=== PATIENT | female | born 2000 | race Caucasian/White ===

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

== ENCOUNTER → 2024-04-27 | Outpatient (CLI) | payer MEDICAID, SELFPAY ==
[2024-04-27 16:31] LABS: Protein, Urine (Random) 11.5 mg/dL (<11.9); Protein:Creat Ratio 148 mg/g CRE (0-200)
[2024-05-01 00:07] LABS: Chlamydia By Nucleic Acid AMP Negative (Negative); Gonococcus By Nucleic Acid AMP Negative (Negative)
[2024-05-03 15:41] LABS: HPV Reflexed? NOT INDICATED
== END | disposition home or self-care (01) ==
PROVIDERS: Referring Provider Advanced Practice Midwife; Visit Provider Obstetrics & Gynecology
DX: O09.90 Supervision of high risk pregnancy, unspecified, unspecified trimester (principal); Z3A.00 Weeks of gestation of pregnancy not specified; Z87.59 Personal history of other complications of pregnancy, childbirth and the puerperium; Z12.4 Encounter for screening for malignant neoplasm of cervix
CPT/HCPCS: 82570; 84156; 87086; 87088; 87491; 87591; 88175; G0145

== ENCOUNTER → 2024-05-18 | Outpatient (CLI) | payer MEDICAID, SELFPAY ==
[2024-05-18 15:37] LABS: Absolute Lymphocyte Count 2.04 X10^3/uL (0.83-4.51); Absolute Neutrophil Count 6.8 X10^3/uL (2.0-7.7); Basophil# 0.08 X10^3/uL; Basophil% 0.8 % (0-1); Eosinophil# 0.09 X10^3/uL; Eosinophils% 0.9 % (0-5); Hematocrit 39.5 % (37-47); Hemoglobin 13.5 g/dL (12.0-15.0); Lymphocyte # 2.04 X10^3/ul (0.83-4.51); Lymphocyte % 21.4 % (19-41); Mean Corp Hgb Conc 34.2 g/dL (32-36); Mean Platelet Vol. 9.8 fl (6.2-12.0); Monocyte# 0.49 X10^3/uL; Monocyte% 5.1 % (0-10); NRBC Flagged by Analyzer 0 % (0-5); Neutrophil % 71.3 % (47-70); Platelet Count 264 K/mm3 (150-450); RBC Distribution Width CV 12.7 % (11.6-14.6); RBC Distribution Width SD 38.1 fl (35.1-43.9); Red Blood Count 4.82 M/mm3 (4.2-5.4); White Blood Count 9.6 K/mm3 (4.4-11.0)
[2024-05-18 15:58] LABS: ALB/GLOB Ratio 0.9 RATIO (0.9-2.4); AST(SGOT) 5 U/L (15-37); Alanine Aminotransfer ALT/SGPT 18 U/L (13-56); Albumin, Serum 3.6 g/dL (3.2-5.0); Alkaline Phosphatase 66 U/L (45-117); Anion Gap 5 (5-15); BUN 12 mg/dL (7-18); BUN/Creat Ratio 15.2 RATIO (10-20); Calcium,Total 9.1 mg/dL (8.5-10.1); Chloride 107 mmol/L (98-107); Creatinine, Serum 0.79 mg/dL (0.55-1.02); EST Glomerular Filtration Rate 97 mL/min (>60); Est Glom Filt Rate - Afr Amer 117 mL/min (>60); Glucose 82 mg/dL (74-106); Potassium 3.5 mmol/L (3.5-5.1); Protein, Total 7.6 g/dL (6.4-8.2); Sodium Level 136 mmol/L (136-145)
[2024-05-18 18:11] LABS: HIV - WCH Non-Reactive (Nonreactive); Hepatitis B Surface Antigen Non-Reactive (Nonreactive); Hepatitis C Antibody Non-Reactive (Nonreactive); Rubella IgG Reactive (Nonreactive); Syphilis Antibodies Non-reactive
== END | disposition home or self-care (01) ==
LOC: BWCLAB 14:53
PROVIDERS: Obstetrics & Gynecology; Referring Provider Advanced Practice Midwife; Visit Provider Advanced Practice Midwife
DX: O09.91 Supervision of high risk pregnancy, unspecified, first trimester (principal); Z3A.00 Weeks of gestation of pregnancy not specified; Z87.59 Personal history of other complications of pregnancy, childbirth and the puerperium
CPT/HCPCS: 36415; 80053; 85025; 86703; 86762; 86780; 86803; 86850; 86900; 86901; 87340

== ENCOUNTER → 2024-07-26 | Outpatient (CLI) | payer MEDICAID, SELFPAY ==
--- NOTE | 2024-07-26 15:26 | US_ITS ---
STUDY: SECOND AND THIRD TRIMESTER OBSTETRICAL ULTRASOUND REASON FOR EXAM: Female, 23 years old anatomy LMP: March 08, 2024. TECHNIQUE: Transabdominal and Transvaginal TECHNICAL QUALITY: Adequate. PRIOR ULTRASOUND: None. FINDINGS: There is a single intrauterine fetus. The fetus is in a breech presentation. There is demonstrated cardiac activity with a heart rate of 147 bpm. There is a normal amniotic fluid volume. The largest amniotic fluid pocket measures 3.6 cm. The amniotic fluid index (COOPER) is within normal limits. The placenta is fundal in location. There are Grade 0 placental changes. The cervix measures 5 cm in length. The adnexal regions are not visualized. BIOMETRY: BPD: 4.45 cm: 19 weeks, 3 days: 27% HC: 17.23 cm: 19 weeks, 6 days: 33% AC: 15.57 cm: 20 weeks, 5 days: 69% FL: 3.2 cm: 20 weeks, 0 days: 41% CI: 73% FL/BPD: 72% FL/HC: 19% FL/AC: 21% HC/AC: 1.11 age by current US: 19 weeks, 6 days. EDILIA by current US: December 14, 2024. Estimated weight: 345 grams, +/- 52 grams, 62 %. Age by LMP: 20 weeks, 0 days. EDILIA by LMP: December 13, 2024. ANATOMY: Gender: Female Cranium: Normal lateral ventricles. Normal choroid plexus. Normal cerebellum. Normal cisterna magna. Normal face, nose and lips. Chest: Normal 4-chamber heart. Abdomen/Pelvis: Normal diaphragm. Normal stomach. Normal abdominal wall. Normal cord insertion. Normal 3 vessel cord. Normal kidneys. Normal bladder. Spine: Normal cervical spine. Normal thoracic spine. Normal lumbar spine. Normal sacrum. Extremities: Normal bilateral upper extremities. Normal bilateral lower extremities. IMPRESSION: Single live uterine gestation with a mean gestational age of 19 weeks and 6 days. Electronically Signed: Regis Schofield MD at 9:51 EST , STUDY: FIRST TRIMESTER OBSTETRICAL ULTRASOUND REASON FOR EXAM: Female, 23 years old. Cervical length. LMP: March 08, 2024. TECHNIQUE: Transvaginal TECHNICAL QUALITY: Adequate. PRIOR ULTRASOUND: None. FINDINGS: Cervical length measures 5 cm. US/OB Anatomy w/ Transvaginal IMPRESSION: Cervical length measures 5 cm. Electronically Signed: Regis Schofield MD at 9:52 EST ,
== END | disposition home or self-care (01) ==
LOC: US 15:23
PROVIDERS: Referring Provider Obstetrics & Gynecology; Visit Provider Obstetrics & Gynecology
DX: O09.90 Supervision of high risk pregnancy, unspecified, unspecified trimester (principal); Z3A.00 Weeks of gestation of pregnancy not specified

== ENCOUNTER → 2024-09-13 | Outpatient (CLI) | payer MEDICAID, SELFPAY ==
[2024-09-13 12:09] LABS: Absolute Lymphocyte Count 2.06 X10^3/uL (0.83-4.51); Absolute Neutrophil Count 7.5 X10^3/uL (2.0-7.7); Basophil# 0.05 X10^3/uL; Basophil% 0.5 % (0-1); Eosinophil# 0.12 X10^3/uL; Eosinophils% 1.2 % (0-5); Hematocrit 36.1 % (37-47); Hemoglobin 12.2 g/dL (12.0-15.0); Lymphocyte # 2.06 X10^3/ul (0.83-4.51); Lymphocyte % 19.9 % (19-41); Mean Corp Hgb Conc 33.8 g/dL (32-36); Mean Corpuscular Hgb 28.8 pg (27.0-32.0); Mean Corpuscular Volume 85.3 fL (81-99); Monocyte# 0.52 X10^3/uL; NRBC Flagged by Analyzer 0 % (0-5); Neutrophil # 7.54 X10^3/uL (2.7-7.7); Neutrophil % 72.9 % (47-70); Platelet Count 249 K/mm3 (150-450); RBC Distribution Width CV 13.2 % (11.6-14.6); RBC Distribution Width SD 40.9 fl (35.1-43.9); Red Blood Count 4.23 M/mm3 (4.2-5.4); White Blood Count 10.3 K/mm3 (4.4-11.0)
[2024-09-13 13:35] LABS: Glucose Challenge Gest 1H 50g 91 mg/dL; HIV Nonreactive (Nonreactive); Syphilis Antibodies Nonreactive (Nonreactive)
== END | disposition home or self-care (01) ==
LOC: BWCLAB 09:28
PROVIDERS: Referring Provider Advanced Practice Midwife; Visit Provider Advanced Practice Midwife
DX: O09.90 Supervision of high risk pregnancy, unspecified, unspecified trimester (principal); Z3A.00 Weeks of gestation of pregnancy not specified; Z13.1 Encounter for screening for diabetes mellitus
CPT/HCPCS: 36415; 82950; 85025; 86703; 86780

== ENCOUNTER → 2024-11-07 | Outpatient (CLI) | payer MEDICAID, SELFPAY ==
--- NOTE | 2024-11-07 11:49 | US_ITS ---
PROCEDURE: OB LIMITED WITH BIOMETRICS 11/07/2024 REASON FOR EXAM: UTERINE SIZE LESS THAN DATES TECHNIQUE: High resolution obstetric ultrasound performed using a 2D transducer. Standard views obtained, including biometry, anatomy survey, and Doppler studies. FINDINGS Transabdominal imaging Single live intrauterine with cardiac activity at 136 beats per minute. Presentation cephalic. Cervix not visualized. Adnexa not visualized. COOPER 11.0 cm, maximum pocket 3.3 cm Fundal placenta appears within limits, not low-lying, grade 1 DIMENSIONS: Biparietal Diameter: 8.78 cm/35 weeks 3 days, 69% Head Circumference: 32.05 cm/36 weeks 1 day, 48% Abdominal Circumference: 29.48 cm/33 weeks 3 days, 18% Femur Length: 6.24 cm/32 weeks 2 days, 2% FL/AC 21%, FL/BPD 71%, FL/HC 19%, CI 79%, HC/AC 1.09 ESTIMATED WEIGHT: 2222 g +/-333 g ESTIMATED WEIGHT PERCENTILE (24+ weeks): 16% Estimated age by current ultrasound 34 weeks 6 days, EDILIA 12/13/2024 age by LMP 34 weeks 6 days, EDILIA 12/13/2024 US/OB Limited With Biometrics IMPRESSION: Single live intrauterine with biometry as above. Femur Length: 6.24 cm/32 weeks 2 days, 2% Reading Location: [id number]
== END | disposition home or self-care (01) ==
LOC: US 11:49
PROVIDERS: Referring Provider Advanced Practice Midwife; Visit Provider Advanced Practice Midwife
DX: O26.849 Uterine size-date discrepancy, unspecified trimester (principal); Z3A.00 Weeks of gestation of pregnancy not specified
CPT/HCPCS: 76816

== ENCOUNTER → 2024-11-17 | Outpatient (CLI) | payer MEDICAID, SELFPAY | END | disposition home or self-care (01) | LOC: LABSPEC 11:36 | PROVIDERS: Referring Provider Advanced Practice Midwife; Visit Provider Advanced Practice Midwife | DX: O09.92 Supervision of high risk pregnancy, unspecified, second trimester (principal); Z3A.00 Weeks of gestation of pregnancy not specified | CPT/HCPCS: 87081 ==

== ENCOUNTER 2024-12-01 18:23 | Outpatient (CLI) | payer MEDICAID, SELFPAY ==
[2024-12-01 18:52] VITALS: RESP 17; TEMP 37.1; O2SAT 96
[2024-12-01 18:53] VITALS: BP 116/71; PULSE 102
[2024-12-01 19:03] VITALS: BMI 32.5
[2024-12-01 19:18] LABS: ROM Internal Control Test YES-OK TO RESULT pt. (Internal QC); ROM Patient Test Negative (Negative); Record Kit Lot#, ROM+ K3358
--- NOTE | 2024-12-01 19:34 | OB.TRI.HP_ITS ---
HPI - General HPI Narrative ALYSSA RICO, is a 24 F who presents 38.2 presenting with small vaginal bleeding after vaginal exam this afternoon in the office. small clots noted with some discharge then nothing further. good fm, denies ctx/lof. Maternal Data Information EDILIA Calculator Estimated Delivery Date Method Current WG Current Estimate 12/13/24 Ultrasound #1 38w 2d Other Estimates 11/21/24 LMP (Uncertain) 41w 3d PFSH PFSH Medical History Friedreich ataxia Home Medications ?Medication ?Instructions ?Recorded ?Last Taken ?Type aspirin 81 mg tablet,delayed 81 mg PO QDAY 04/13/24 History release (Adult Low Dose Aspirin) multivit-min no.71-iron fum 28 1 cap PO DAILY pregnanc y 04/13/24 12/01/24 History mg-folate no.1 1 mg-dha 300 mg capsule (PNV-[place]) Allergy/AdvReac Type Severity Reaction Status Date / Time No Known Allergies Allergy Verified 12/01/24 18:49 Family History Mother Diabetes Grandmother Cancer unknown Social History adopted: No household members: significant other and children number of children: 3 current occupational status: 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 History 2 Elective abortions Hx Para 1 Spontaneous abortions Hx # Term Pregnancies Ectopic pregnancies Hx # Pregnancies 1 Multiple births 1 # of living children 2 Past Pregnancies Del. Date Name GA/Weeks Outcome Route Bth Weight Infant Gen Labor Lgth Anes the sonia Del Locatn Provider FOB 06/01/21 Adina 31 live - 3lbs 4oz Female epid ural Kerry Carmichael 06/01/21 Leia 31 live - 4lbs Female epidura l Kerry Carmichael Delivery Date: 06/01/21 Last Updated by: Steffanie Gregory PROM, pre-e Delivery Date: 06/01/21 Last Updated by: Steffanie Gregory PROM, pre-e Visit Details Expected Delivery Route/Plan Labor Preferences- CB/BF classes: no labor support person: Mingo labor intervention preferences: [] pain management options preferred: limited cut cord/dad catch: yes : maybe PP control planned: discussed discussed possible routes of delivery and associated risks: [] special requests: [] Plans Covid status: [] Flu vaccine: [] Tdap vaccine: given Rhogam: na LARC form signed: yes movement and labor precautions reviewed. Problem list reviewed and updated with the most current plan of care details and appropriate orders placed. Relevant counseling for the gestational age provided. Continue routine care and follow up unless otherwise noted in visit notes/problem list details OB Flowsheet Initial Weight: Not Recorded Date -?-?-?-?-?-?-?-?-?-?-?-?- EGA Weight BP Urine Prot -?-?-?-?-?-?-?-?-?-?-?-?- Glucose FHR FuHt Pres Dilation -?-?-?-?-?--?-?-?-?-?-?-?- Effaced St Visit Note 04/27/24 -?-?-?-?-?-?-?-?-?-?-?-?- 7w 1d 169 lb 126/80 -?-?-?-?-?-?-?-?-?-?-?-?- 141 -?-?-?-?-?-?-?-?-?-?-?-?- KW- CRL not cons with dates. EDILIA changed. accepts NIPT. ASA discussed. 05/18/24 -?-?-?-?-?-?-?-?-?-?-?-?- 10w 1d 163 lb 8 oz 105/73 -?-?-?-?-?-?-?-?-?-?-?-?- Negative 168 -?-?-?-?-?-?-?-?-?-?-?-?- kw- Work in for SM. no vb/cramping. labs today. doing well. 06/16/24 -?-?-?-?-?-?-?-?-?-?-?-?- 14w 2d 162 lb 114/85 Negative -?-?-?-?-?-?-?-?-?-?-?-?- Negative 144 -?-?-?-?-?-?-?-?-?-?-?-?- KW- no vb/crampi ng. US ordered. its a girl! 08/07/24 -?-?-?-?-?-?-?-?-?-?-?-?- 21w 5d 167 lb 124/75 Negative -?-?-?-?-?--?-?-?-?-?-?-?- Negative 145 -?-?-?-?-?-?-?-?-?-?-?-?- SM- no vb crmapi ng 08/30/24 -?-?-?-?-?-?-?-?-?-?-?-?- 25w 0d 173 lb 130/84 Negative -?-?-?-?-?-?-?-?-?-?-?-?- Negative 145 25 -?-?-?-?-?-?-?-?-?-?-?-?- KW- no vb/lof/ct mecry. charlene fm. Discussed 28 week labs 09/13/24 -?-?-?-?-?-?-?-?-?-?-?-?- 27w 0d 174 lb 8 oz 112/78 Nega tive -?-?-?-?-?-?-?-?-?-?-?-?- Negative 141 26 -?-?-?-?-?-?-?-?-?-?-?-?- -No VB, LOF. G orico FM. Larc. 28 wk labs pending 09/29/24 -?-?-?-?-?-?-?-?-?-?-?-?- 29w 2d 175 lb 120/85 Negative -?-?-?-?-?-?-?-?-?-?-?-?- Negative 140 29 -?-?-?-?-?-?-?-?-?-?-?-?- LC- no vb/ctx/lo f. good fm. passed glucose. 10/13/24 -?-?-?-?-?-?-?-?-?-?-?-?- 31w 2d 175 lb 8 oz 121/82 Nega tive -?-?-?-?-?-?-?-?-?-?-?-?- Negative 145 30 -?-?-?-?-?-?-?-?-?-?-?-?- KW- no vb/lof/ct x. good fm. tdap today. doing well 10/27/24 -?-?-?-?-?-?-?-?-?-?-?-?- 33w 2d 178 lb 8 oz 122/85 Nega tive -?-?-?-?-?-?-?-?-?-?-?-?- Negative 140 30.5 -?-?-?-?-?-?-?-?-?-?-?-?- KW- no vb/lof/ct x. good fm. growth US ordered for low FH. 11/10/24 -?-?-?-?-?-?-?-?-?-?-?-?- 35w 2d 181 lb 8 oz 120/82 Nega tive -?-?-?-?-?-?-?-?-?-?-?-?- Negative 140 34 -?-?-?-?-?-?-?-?-?-?-?-?- KW- no vb/lof/ct x. good fm . reviewed US and normal. EFW 18% 11/17/24 -?-?-?-?-?-?-?-?-?-?-?-?- 36w 2d 184 lb 128/90 Negative -?-?-?-?-?-?-?-?-?-?-?-?- Negative 140 35 Cephalic 2 .5 -?-?-?-?-?-?-?-?-?-?-?-?- 50 -2 KW- no vb/ lof/ctx. good fm. some back pain yesterday but resolved. labor precautions 11/24/24 -?-?-?-?-?-?-?-?-?-?-?-?- 37w 2d 184 lb 118/84 Negative -?-?-?-?-?-?-?-?-?-?-?-?- Negative 145 33 Cephalic 2 .5 -?-?-?-?-?-?-?-?-?-?-?-?- SM- no vb lof go od fm irreugalr ctx uterine size date discrepancy 12/01/24 -?-?-?-?-?-?-?-?-?-?-?-?- 38w 2d 186 lb 2 oz 126/77 Nega tive -?-?-?-?-?-?-?-?-?-?-?-?- Negative 140 30 Cephalic 2 .5 -?-?-?-?-?-?-?-?-?-?-?-?- 50 -2 JV- still measuring small and ultrasound is still not on until next week. COOPER in office is 10.07 and EFW is 6lbs 0oz. FL still measures 34 weeks NST FHR Rate Baby A Baseline: 135 Variability:: Moderate Accelerations:: 15 x 15 Decelerations:: None NST Reactive:: Yes FHR Category:: Category I Uterine Activity:: none Assessment & Plan (1) Vaginal bleeding during : COMMENT: determined to be bloody show after vaginal exam. no change in cervical exam. no further bleeding noted. cat 1 tracing. safe for d/c home Charges/Coding Procedures Urinary/Genital 52xxx-59xxx: 09133-62 non-stress test Interp
--- NOTE | 2024-12-01 19:34 | OB.TRI.NOTE ---
HPI - General HPI Narrative ALYSSA RICO, is a 24 F who presents 38.2 presenting with small vaginal bleeding after vaginal exam this afternoon in the office. small clots noted with some discharge then nothing further. good fm, denies ctx/lof. Maternal Data Information EDILIA Calculator Estimated Delivery Date Method Current WG Current Estimate 12/13/24 Ultrasound #1 38w 2d Other Estimates 11/21/24 LMP (Uncertain) 41w 3d PFSH PFSH Medical History Friedreich ataxia Home Medications ?Medication ?Instructions ?Recorded ?Last Taken ?Type aspirin 81 mg tablet,delayed 81 mg PO QDAY 04/13/24 12/01/24 History release (Adult Low Dose Aspirin) multivit-min no.71-iron fum 28 1 cap PO DAILY 04/13/24 12/01/24 History mg-folate no.1 1 mg-dha 300 mg capsule (PNV-[place]) Allergy/AdvReac Type Severity Reaction Status Date / Time No Known Allergies Allergy Verified 12/01/24 18:49 Family History Mother Diabetes Grandmother Cancer unknown Social History adopted: No household members: significant other and children number of children: 3 current occupational status: 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 History 2 Elective abortions Hx Para 1 Spontaneous abortions Hx # Term Pregnancies Ectopic pregnancies Hx # Pregnancies 1 Multiple births 1 # of living children 2 Past Pregnancies Del. Date Name GA/Weeks Outcome Route Bth Weight Infant Gen Labor Lgth Anesthesia Del Locatn Provider FOB 06/01/21 Adina 31 live - 3lbs 4oz Female epidural [facility] Elliott Carmichael 06/01/21 Leia 31 live - 4lbs Female epidural [facility] Dr. Elliott Carmichael Delivery Date: 06/01/21 Last Updated by: Steffanie Gregory PROM, pre-e Delivery Date: 06/01/21 Last Updated by: Steffanie Gregory PROM, pre-e Visit Details Expected Delivery Route/Plan Labor Preferences- CB/BF classes: no labor support person: Mingo labor intervention preferences: [] pain management options preferred: limited cut cord/dad catch: yes : maybe PP control planned: discussed discussed possible routes of delivery and associated risks: [] special requests: [] Plans Covid status: [] Flu vaccine: [] Tdap vaccine: given Rhogam: na LARC form signed: yes movement and labor precautions reviewed. Problem list reviewed and updated with the most current plan of care details and appropriate orders placed. Relevant counseling for the gestational age provided. Continue routine care and follow up unless otherwise noted in visit notes/problem list details OB Flowsheet Initial Weight: Not Recorded Date <del>?</del> EGA Weight BP Urine Prot <del>?</del> Glucose FHR FuHt Pres Dilation <del>?</del> Effaced St Visit Note 04/27/24 <del>?</del> 7w 1d 169 lb 126/80 <del>?</del> 141 <del>?</del> KW- CRL not cons with dates. EDILIA changed. accepts NIPT. ASA discussed. 05/18/24 <del>?</del> 10w 1d 163 lb 8 oz 105/73 <del>?</del> Negative 168 <del>?</del> kw- Work in for SM. no vb/cramping. labs today. doing well. 06/16/24 <del>?</del> 14w 2d 162 lb 114/85 Negative <del>?</del> Negative 144 <del>?</del> KW- no vb/cramping. US ordered. its a girl! 08/07/24 <del>?</del> 21w 5d 167 lb 124/75 Negative <del>?</del> Negative 145 <del>?</del> SM- no vb crmaping 08/30/24 <del>?</del> 25w 0d 173 lb 130/84 Negative <del>?</del> Negative 145 25 <del>?</del> KW- no vb/lof/ctx. good fm. Discussed 28 week labs 09/13/24 <del>?</del> 27w 0d 174 lb 8 oz 112/78 Negative <del>?</del> Negative 141 26 <del>?</del> MH-No VB, LOF. Good FM. Larc. 28 wk labs pending 09/29/24 <del>?</del> 29w 2d 175 lb 120/85 Negative <del>?</del> Negative 140 29 <del>?</del> LC- no vb/ctx/lof. good fm. passed glucose. 10/13/24 <del>?</del> 31w 2d 175 lb 8 oz 121/82 Negative <del>?</del> Negative 145 30 <del>?</del> KW- no vb/lof/ctx. good fm. tdap today. doing well 10/27/24 <del>?</del> 33w 2d 178 lb 8 oz 122/85 Negative <del>?</del> Negative 140 30.5 <del>?</del> KW- no vb/lof/ctx. good fm. growth US ordered for low FH. 11/10/24 <del>?</del> 35w 2d 181 lb 8 oz 120/82 Negative <del>?</del> Negative 140 34 <del>?</del> KW- no vb/lof/ctx. good fm . reviewed US and normal. EFW 18% 11/17/24 <del>?</del> 36w 2d 184 lb 128/90 Negative <del>?</del> Negative 140 35 Cephalic 2.5 <del>?</del> 50 -2 KW- no vb/lof/ctx. good fm. some back pain yesterday but resolved. labor precautions 11/24/24 <del>?</del> 37w 2d 184 lb 118/84 Negative <del>?</del> Negative 145 33 Cephalic 2.5 <del>?</del> SM- no vb lof good fm irreugalr ctx uterine size date discrepancy 12/01/24 <del>?</del> 38w 2d 186 lb 2 oz 126/77 Negative <del>?</del> Negative 140 30 Cephalic 2.5 <del>?</del> 50 -2 JV- still measuring small and ultrasound is still not on until next week. COOPER in office is 10.07 and EFW is 6lbs 0oz. FL still measures 34 weeks NST FHR Rate Baby A Baseline: 135 Variability:: Moderate Accelerations:: 15 x 15 Decelerations:: None NST Reactive:: Yes FHR Category:: Category I Uterine Activity:: none Assessment & Plan (1) Vaginal bleeding during : COMMENT: determined to be bloody show after vaginal exam. no change in cervical exam. no further bleeding noted. cat 1 tracing. safe for d/c home Charges/Coding Procedures Urinary/Genital 52xxx-59xxx: 40981-74 non-stress test Interp
== END 2024-12-01 19:45 | disposition home or self-care (01) ==
LOC: WPOUT 18:32 → WP 18:34
PROVIDERS: Visit Provider Registered Nurse
DX: O46.93 Antepartum hemorrhage, unspecified, third trimester (principal); Z3A.38 38 weeks gestation of pregnancy; Z79.82 Long term (current) use of aspirin
CPT/HCPCS: 59025; 59050; 84112; 99221; G0378

== ENCOUNTER → 2024-12-07 | Outpatient (CLI) | payer MEDICAID, SELFPAY ==
--- NOTE | 2024-12-07 16:34 | US_ITS ---
PROCEDURE: OB LIMITED WITH BIOMETRICS 12/07/2024 REASON FOR EXAM: GROWTH TECHNIQUE: High resolution obstetric ultrasound performed using a 2D transducer. Standard views obtained, including biometry COMPARISON: 11/07/2024 FINDINGS Transabdominal imaging. Single live intrauterine cardiac activity 144 beats per minute. Presentation is cephalic. Cervix is not well visualized likely due to presentation. COOPER 20.2 cm. Maximum vertical pocket 7.3 cm. Grade 2 fundal placenta appears within limits. Not low-lying. DIMENSIONS: Biparietal Diameter: 9.3 cm/38 weeks 0 day, 53% Head Circumference: 34.2 cm/39 weeks 3 days, 47% Abdominal Circumference: 35 cm/38 weeks 5 days, 63% Femur Length: 7.4 cm/37 weeks 5 days, 24% FL/AC 21%, FL/BPD 79%, FL/AC 22%, CI 79%, HC/AC 0.98 ESTIMATED WEIGHT: 3520 g +/-528 g ESTIMATED WEIGHT PERCENTILE (24+ weeks): 55% Estimated age by current ultrasound 38 weeks 3 days, EDILIA 12/18/2024 age by LMP 39 weeks 1 day, EDILIA 12/13/2024 US/OB Limited With Biometrics IMPRESSION: Single live intrauterine with biometry as above. Reading Location: [id number]
== END | disposition home or self-care (01) ==
LOC: US 16:32
PROVIDERS: Referring Provider Obstetrics & Gynecology; Visit Provider Obstetrics & Gynecology
DX: O26.849 Uterine size-date discrepancy, unspecified trimester (principal); Z3A.00 Weeks of gestation of pregnancy not specified
CPT/HCPCS: 76816

== ENCOUNTER 2024-12-09 08:00 | Inpatient (IN) | payer MEDICAID, SELFPAY ==
[2024-12-09] VITALS (21 sets, daily range): BP systolic 109–127; BP diastolic 66–86; PULSE 87–126; RESP 14–18; TEMP 36.6–37.5; O2SAT 96–98; BMI 32.8
[2024-12-09 08:36] LABS: Absolute Lymphocyte Count 2.42 X10^3/uL (0.83-4.51); Absolute Neutrophil Count 12.2 X10^3/uL (2.0-7.7); Basophil# 0.07 X10^3/uL; Basophil% 0.4 % (0-1); Eosinophil# 0.07 X10^3/uL; Eosinophils% 0.4 % (0-5); Hematocrit 34.8 % (37-47); Hemoglobin 11.6 g/dL (12.0-15.0); Lymphocyte # 2.42 X10^3/ul (0.83-4.51); Lymphocyte % 15.5 % (19-41); Mean Corp Hgb Conc 33.3 g/dL (32-36); Mean Corpuscular Hgb 26.9 pg (27.0-32.0); Mean Corpuscular Volume 80.6 fL (81-99); Mean Platelet Vol. 11.7 fl (6.2-12.0); Monocyte# 0.76 X10^3/uL; Monocyte% 4.9 % (0-10); NRBC Flagged by Analyzer 0 % (0-5); Neutrophil # 12.23 X10^3/uL (2.7-7.7); Neutrophil % 78.2 % (47-70); Platelet Count 190 K/mm3 (150-450); RBC Distribution Width CV 12.8 % (11.6-14.6); RBC Distribution Width SD 37.3 fl (35.1-43.9); Red Blood Count 4.32 M/mm3 (4.2-5.4); White Blood Count 15.6 K/mm3 (4.4-11.0)
[2024-12-09 09:10] LABS: Syphilis Antibodies Nonreactive (Nonreactive)
[2024-12-09] MEDS: Oxytocin 10 UNITS/ML Vial IM (11:27)
[2024-12-09] MEDS: Oxytocin 15 Units/NS 250ml 15 UNITS/250 ML IV.SOLN 83 UNITS IV (11:28)
--- NOTE | 2024-12-09 11:50 | HP.PCM.OB_ITS ---
HPI - General General Date of Admission: 12/09/24 HPI Narrative ALYSSA RICO, is a 24 F who presents in active labor regular contractions 4 cm dilated 90% effaced -1 station. No loss of fluid no vaginal bleeding good movement Maternal Data Information EDILIA Calculator Estimated Delivery Date Method Current WG Current Estimate 12/13/24 Ultrasound #1 39w 3d Other Estimates 11/21/24 LMP (Uncertain) 42w 4d PFSH PFSH Home Medications ?Medication ?Instructions ?Recorded ?Last Taken ?Type aspirin 81 mg tablet,delayed 81 mg PO QDAY 04/13/24 History release (Adult Low Dose Aspirin) multivit-min no.71-iron fum 28 1 cap PO DAILY pregnanc y 04/13/24 12/08/24 07:00 History mg-folate no.1 1 mg-dha 300 mg capsule (PNV-[place]) Allergy/AdvReac Type Severity Reaction Status Date / Time No Known Allergies Allergy Verified 12/09/24 07:33 Family History Mother Diabetes Grandmother Cancer unknown Social History adopted: No household members: significant other and children number of children: 3 current occupational status: 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 History 2 Elective abortions Hx Para 2 Spontaneous abortions Hx # Term Pregnancies Ectopic pregnancies Hx # Pregnancies 1 Multiple births 1 # of living children 2 Past Pregnancies Del. Date Name GA/Weeks Outcome Route Bth Weight Gen Labor Lgth Anesthesia Del Locatn Provider FOB 06/01/21 Adina 31 live - 3lbs 4oz Female epid ural [facility] Dr[facility] Elliott Carmichael 06/01/21 Leia 31 live - 4lbs Female erikagen jb Carmichael Delivery Date: 06/01/21 Last Updated by: Steffanie Gregory PROM, pre-e Delivery Date: 06/01/21 Last Updated by: Steffanie Gregory PROM, pre-e Visit Details Expected Delivery Route/Plan Labor Preferences- CB/BF classes: no labor support person: Mingo labor intervention preferences: [] pain management options preferred: limited cut cord/dad catch: yes : maybe PP control planned: discussed discussed possible routes of delivery and associated risks: [] special requests: [] Plans Covid status: [] Flu vaccine: [] Tdap vaccine: given Rhogam: na LARC form signed: yes movement and labor precautions reviewed. Problem list reviewed and updated with the most current plan of care details and appropriate orders placed. Relevant counseling for the gestational age provided. Continue routine care and follow up unless otherwise noted in visit notes/problem list details OB Flowsheet Initial Weight: Not Recorded Date -?-?-?-?-?-?-?-?-?-?-?-?- EGA Weight BP Urine Prot -?-?-?-?-?-?-?-?-?-?-?-?- Glucose FHR FuHt Pres Dilation -?-?-?-?-?-?-?-?-?-?-?-?- Effaced St Visit Note 04/27/24 -?-?-?-?-?-?-?-?-?-?-?-?- 7w 1d 169 lb 126/80 -?-?-?-?-?-?-?-?-?-?-?-?- 141 -?-?-?-?-?-?-?-?-?-?-?-?- KW- CRL not cons with dates. EDILIA changed. accepts NIPT. ASA discussed. 05/18/24 -?-?-?-?-?-?-?-?-?-?-?-?- 10w 1d 163 lb 8 oz 105/73 -?-?-?-?-?-?-?--?-?-?-?-?- Negative 168 -?-?-?-?-?-?-?-?-?-?-?-?- kw- Work in for SM. no vb/cramping. labs today. doing well. 06/16/24 -?-?-?-?-?-?-?-?-?-?-?-?- 14w 2d 162 lb 114/85 Negative -?-?-?-?-?-?-?-?-?-?-?-?- Negative 144 -?-?-?-?-?-?-?-?-?-?-?-?- KW- no vb/crampi ng. US ordered. its a girl! 08/07/24 -?-?-?-?-?-?-?-?-?-?-?-?- 21w 5d 167 lb 124/75 Negative -?-?-?-?-?-?-?-?-?-?-?-?- Negative 145 -?-?-?-?-?-?-?-?-?-?-?-?- SM- no vb crmapi ng 08/30/24 -?-?-?-?-?-?-?-?-?-?-?-?- 25w 0d 173 lb 130/84 Negative -?-?-?-?-?-?-?-?-?-?-?-?- Negative 145 25 -?-?-?-?-?-?-?-?-?-?-?-?- KW- no vb/lof/ct [facility] charlene fm. Discussed 28 week labs 09/13/24 -?-?-?-?-?-?-?-?-?-?-?-?- 27w 0d 174 lb 8 oz 112/78 Nega tive -?-?-?--?-?-?-?-?-?-?-?-?- Negative 141 26 -?-?-?-?-?-?-?-?-?-?-?-?- MH-No VB, LOF. G ood FM. Larc. 28 wk labs pending 09/29/24 -?-?-?-?-?-?-?-?-?-?-?-?- 29w 2d 175 lb 120/85 Negative -?-?-?-?-?-?-?-?-?-?-?-?- Negative 140 29 -?-?-?-?-?-?-?-?-?-?-?-?- LC- no vb/ctx/lo f. good fm. passed glucose. 10/13/24 -?-?-?-?-?-?-?-?-?-?-?-?- 31w 2d 175 lb 8 oz 121/82 Nega tive -?-?-?-?-?-?-?-?-?-?-?-?- Negative 145 30 -?-?-?-?-?-?-?-?-?-?-?-?- KW- no vb/lof/ct x. good fm. tdap today. doing well 10/27/24 -?-?-?-?-?-?-?-?-?-?-?-?- 33w 2d 178 lb 8 oz 122/85 Nega tive -?-?-?-?-?-?-?-?-?-?-?-?- Negative 140 30.5 -?-?-?-?-?-?-?-?-?-?-?-?- KW- no vb/lof/ct x. good fm. growth US ordered for low FH. 11/10/24 -?-?-?-?-?-?-?-?-?-?-?-?- 35w 2d 181 lb 8 oz 120/82 Nega tive -?-?-?-?-?-?-?-?-?-?-?-?- Negative 140 34 -?-?-?-?-?-?-?-?-?-?-?-?- KW- no vb/lof/ct x. good fm . reviewed US and normal. EFW 18% 11/17/24 -?-?-?-?-?-?-?-?-?-?-?-?- 36w 2d 184 lb 128/90 Negative -?-?-?-?-?-?-?-?-?-?-?-?- Negative 140 35 Cephalic 2 .5 -?-?-?-?-?-?-?-?-?-?-?-?- 50 -2 KW- no vb/ lof/ctx. good fm. some back pain yesterday but resolved. labor precautions 11/24/24 -?-?-?-?-?-?-?-?-?-?-?-?- 37w 2d 184 lb 118/84 Negative -?-?-?-?-?-?-?-?-?-?-?-?- Negative 145 33 Cephalic 2 .5 -?-?-?-?-?-?-?-?-?-?-?-?- SM- no vb lof go od fm irreugalr ctx uterine size date discrepancy 12/01/24 -?-?-?-?-?-?-?-?-?-?-?-?- 38w 2d 186 lb 2 oz 126/77 Nega tive -?-?-?-?-?-?-?-?-?-?-?-?- Negative 140 30 Cephalic 2 .5 -?-?-?-?-?-?-?-?-?-?-?-?- 50 -2 JV- still measuring small and ultrasound is still not on until next week. COOPER in office is 10.07 and EFW is 6lbs 0oz. FL still measures 34 weeks 12/08/24 -?-?-?-?-?-?-?-?-?-?-?-?- 39w 2d 187 lb 2 oz 121/85 Nega tive -?-?-?-?-?-?-?-?-?-?-?-?- Negative 165 35 Cephalic 3 -?-?-?-?-?-?-?-?-?-?-?--?- 80 -2 JV- cooper wa s 20 at scan yesterday. baby is 7 lbs 7 oz. membrane sweep done today. NST FHR Rate Baby A Baseline: 140 Variability:: Moderate Accelerations:: 15 x 15 Decelerations:: None NST Reactive:: Yes FHR Category:: Category I Uterine Activity:: q3-5 ROS Constitutional Constitutional: Reports systems reviewed and no addt'l complaints, except as documented ENT HEENT: Reports systems reviewed and no addt'l complaints, except as documented Cardiovascular Cardiovascular: Reports systems reviewed and no addt'l complaints, except as documented Respiratory/Chest Respiratory/Chest: Reports systems reviewed and no addt'l complaints, except as documented Gastrointestinal Gastrointestinal: Reports systems reviewed and no addt'l complaints, except as documented and nausea; Denies abdominal pain Genitourinary Genitourinary: Reports systems reviewed and no addt'l complaints, except as documented, contractions Details: present and frequency (regular ) and movement Details: present Musculoskeletal Musculoskeletal: Reports systems reviewed and no addt'l complaints, except as documented Integumentary Integumentary: Reports as per HPI Neurologic Neurologic: Reports systems reviewed and no addt'l complaints, except as documented Endocrine Endocrinology: Reports systems reviewed and no addt'l complaints, except as documented Vital Signs Vital Signs Vital Signs: 12/09/24 07:28 12/09/24 07:28 12/09/24 07:29 Temperature Temperature Source Temporal Pulse Rate 97 Respiratory Rate Blood Pressure 109/70 BP Systolic 109 BP Diastolic 70 Pulse Ox 12/09/24 07:29 12/09/24 07:29 12/09/24 07:29 Temperature Temperature Source Pulse Rate 97 Respiratory Rate 16 Blood Pressure 109/70 BP Systolic 109 BP Diastolic 70 Pulse Ox 12/09/24 07:29 12/09/24 07:29 12/09/24 09:37 Temperature 98.0 F Temperature Source Pulse Rate Respiratory Rate Blood Pressure 121/86 H BP Systolic 121 BP Diastolic 86 Pulse Ox 98 12/09/24 09:37 12/09/24 09:40 12/09/24 09:40 Temperature Temperature Source Pulse Rate 126 H 122 H Respiratory Rate Blood Pressure BP Systolic BP Diastolic Pulse Ox 97 12/09/24 09:41 12/09/24 09:41 12/09/24 09:41 Temperature Temperature Source Pulse Rate 118 H Respiratory Rate 16 Blood Pressure BP Systolic BP Diastolic Pulse Ox 98 12/09/24 11:34 12/09/24 11:34 12/09/24 11:35 Temperature Temperature Source Temporal Pulse Rate 109 H Respiratory Rate Blood Pressure 127/66 H BP Systolic 127 BP Diastolic 66 Pulse Ox 12/09/24 11:35 05/31/25 11:35 Temperature 98.2 F Temperature Source Pulse Rate Respiratory Rate 15 Blood Pressure BP Systolic BP Diastolic Pulse Ox Weight Weight: 185 lb Body Mass Index (BMI) 32.8 Physical Exam Const alert, oriented x3 and healthy appearing Constitutional Narrative: uncomfortable with contractions HEENT normocephalic and moist oral mucous membranes Head and Scalp: atraumatic Neck full ROM, no lymphadenopathy, supple and thyroid normal General: trachea midline Thyroid: thyroid normal Lymph Lymphatic: no lymphadenopathy noted Chest inspection of chest normal Resp normal respiratory effort Cardio regular rate GI soft to palpation and non-tender GI Narrative: gravid Inspection: gravid external exam normal Bimanual Exam - Vag & Uterus: uterus non-tender Manual OB Exam: estimated gestational size appropriate, presentation cephalic, dilated, effaced and station Extremity normal to inspection General Extremity: Negative for edema Skin no rashes or lesions noted Neuro deep tendon reflexes 2+ bilaterally Motor Exam: strength 5/5 throughout and clonus absent Psych mental status grossly normal Labs Labs Labs: Blood Type B POSITIVE Antibody Screen NEGATIVE Hct 34.8 % (37-47) L Hgb 11.6 g/dL (12.0-15.0) L Obstetrics Ultrasound Syphilis Total Ab Nonreactive (Nonreactive) Rubella IgG Antibody Reactive (Nonreactive) Hep Bs Antigen Non-Reactive (Nonreactive) Hepatitis C Antibody Non-Reactive (Nonreactive) Chlamydia DNA (OSIEL) Negative (Negative) N.gonorrhoeae DNA (OSIEL) Negative (Negative) HIV 1&2 Antibody Nonreactive (Nonreactive) Glucose 1 Hr 50 gm 91 mg/dL Assessment & Plan (1) History of pre-eclampsia: COMMENT: ASA 81mg daily (2) : QUALIFIERS: Weeks of gestation: 39 weeks Qualified Code(s): Z3A.39 - 39 weeks gestation of COMMENT: GBS neg, nl anatomy, elects NIPT with gender, declines carrier. Panorama low risk and female. nl glucose. (3) Supervision of high-risk : QUALIFIERS: Trimester: second trimester Qualified Code(s): O09.92 - Supervision of high risk , unspecified, second trimester COMMENT: [id number], EDILIA 11/[birth year]/24, girl Adina Olivarez (twins), RANDA Peraza (4) History of delivery, currently : COMMENT: with twins, preeclampsia. (5) History of twin in prior : COMMENT: Leia Holden (6) Active labor at term: PLAN: Plan Patient presents IAL, plan expectant management for , pitocin/AROM PRN if needed. Pain management: minimal intervention. GBS neg. Management of any complications: none I have reviewed the [facility] and made any clinically relevant updates.
--- NOTE | 2024-12-09 11:52 | OB.VAGDELI_ITS ---
Assessment & Plan (1) Active labor at term: (2) Vaginal bleeding during : COMMENT: determined to be bloody show after vaginal exam. no change in cervical exam. no further bleeding noted. cat 1 tracing. safe for d/c home (3) Uterine size date discrepancy : COMMENT: S<D-18% (4) History of delivery, currently : COMMENT: with twins, preeclampsia. (5) History of twin in prior : COMMENT: Leia Holden (6) Supervision of high-risk : QUALIFIERS: Trimester: second trimester Qualified Code(s): O09.92 - Supervision of high risk , unspecified, second trimester COMMENT: [id number], EDILIA 11/21/24, girl Steven [facility] Adina Dupree (twins), SO Stu (7) : QUALIFIERS: Weeks of gestation: 39 weeks Qualified Code(s): Z3A.39 - 39 weeks gestation of COMMENT: GBS neg, nl anatomy, elects NIPT with gender, declines carrier. Panorama low risk and female. nl glucose. (8) History of pre-eclampsia: COMMENT: ASA 81mg daily (9) Vaginal delivery: COMMENT: SM IAL 39 shani Harris Maternal Data Information EDILIA Calculator Estimated Delivery Date Method Current WG Current Estimate 12/13/24 Ultrasound #1 39w 3d Other Estimates 11/21/24 LMP (Uncertain) 42w 4d Vaginal Delivery Maternal Presentation Maternal Presentation: see assessment and plan Vaginal Delivery Information Surgeon/Practitioner: Iva Nash Type of anesthesia: None Findings Description of procedure: Patient began pushing and delivered the head in the jaclyn presentation. The head was delivered atraumatically. The anterior and posterior shoulders delivered without complication followed by the rest of the infant and the was placed on the maternal abdomen. Delayed cord clamping was employed for approximately 60 seconds. Cord was clamped and cut and gentle traction was applied to the cord and the placenta delivered spontaneously immediately following it was noted to be intact with three-vessel cord. The perineum and vagina were inspected and noted to have no laceration. EBL was 100 cc. Patient and infant tolerated delivery well. Presentation: Vertex Placental Delivery Description: Spontaneous Specimen collected: Yes Description of specimen(s) removed: placenta Video Surveillance Technician corporate planner: No Post Vaginal Deli Medications given after delivery: Other (pitocin) Complication Complications: No Multi Select Codes Urinary/Genital Urinary/Genital CPT Codes: 38683 Vaginal Delivery+ PP Care([facility])
--- NOTE | 2024-12-09 11:55 | DCINST_ITS ---
Discharge Instructions Diet Discharge Diet: No restrictions DC O2, CPAP, BIPAP needs Home O2 Discharge instructions: No Dressing / Incision Discharge Activity: Return to Normal Activity, May Not Drive (while taking narcotic pain medications.) and May Shower May resume sexual activity in: 4-6 weeks Dressing / Incision Call your doctor if your incision/area has: Continuous Slow Oozing, Sudden Increased Bleeding, Increased Pain/ Swelling, Increased Redness and Foul Smelling Discharge Follow Up Care Please Follow Up With: Iva Nash MD When: Call [phone] to make an appointment with your doctor in 6 weeks. If you had elevated blood pressure or 4th degree laceration, you will need to be seen in 2 weeks. Test Results: Test results from this visit will be discussed in further detail at your follow- up appointment, if applicable. Discharge Plan Admission Admit Date/Time: 12/09/24 08:00 Attending Provider: Iva Nash Primary Care Provider: Care Physician,Gaby Primary Discharge Orders/Prescriptions Prescriptions: No Action [facility] 28-1-300 mg capsule 1 cap PO DAILY aspirin [Adult Low Dose Aspirin] 81 mg tablet,delayed release (DR/EC) 81 mg PO QDAY Referrals / Follow Up: Care Physician,Gaby Primary [Primary Care Provider] - Disposition Disposition (needs filled in before D/C Order can be placed): Home, Self Care
[2024-12-09] MEDS: Naproxen 500 MG Tablet PO (20:22)
[2024-12-10] VITALS (9 sets, daily range): BP systolic 98–120; BP diastolic 56–84; PULSE 79–97; RESP 14–18; TEMP 36.1–36.7; O2SAT 97–98
[2024-12-10] MEDS: Acetaminophen 500 MG Tablet 1000 MG PO (04:16)
--- NOTE | 2024-12-10 07:22 | PCM.PN.OB ---
Subjective Subjective Patient doing well without complaints. Tolerating PO. Ambulating and voiding without difficulty. feeding well. Denies chest pain, shortness of breath, calf pain/swelling, fevers, chills, lightheadedness. Objective Data Objective Data Vital Signs: Vital Signs Temp Pulse Resp BP Pulse Ox O2 Del Method 97.6 F L 82 16 113/84 H 98 Room Air 12/10/24 04:12 12/10/24 04:12 12/10/24 04:12 12/10/24 04:12 12/10/24 04:12 12/10/24 04:12 Oxygen Delivery Method Room Air Weight: 185 lb Body Mass Index (BMI) 32.8 Intake & Output: Intake and Output for Last 24 Hours 12/08/24 12/09/24 12/10/24 23:59 23:59 23:59 Intake Total 250 / 250 Output Total 900 / 900 Balance -650 / -650 Lab / Micro Data 12/09/24 08:20 Labs: Laboratory Results - last 24 hr 12/09/24 08:20: WBC 15.6 H, RBC 4.32, Hgb 11.6 L, Hct 34.8 L, MCV 80.6 L, MCH 26.9 L, MCHC 33.3, RDW Std Deviation 37.3, RDW Coeff of Sho 12.8, Plt Count 190, MPV 11.7, Immature Gran % (Auto) 0.600, Neut % (Auto) 78.2 H, Lymph % (Auto) 15.5 L, Pierce % (Auto) 4.9, Eos % (Auto) 0.4, Baso % (Auto) 0.4, Absolute Neuts (auto) 12.2 H, Absolute Lymphs (auto) 2.42, Nucleated RBC % 0, Syphilis Total Ab Nonreactive, Blood Type B POSITIVE, Antibody Screen NEGATIVE ROS Constitutional Constitutional: Reports systems reviewed and no addt'l complaints, except as documented Cardiovascular Cardiovascular: Reports systems reviewed and no addt'l complaints, except as documented Respiratory/Chest Respiratory/Chest: Reports systems reviewed and no addt'l complaints, except as documented Gastrointestinal Gastrointestinal: Reports systems reviewed and no addt'l complaints, except as documented Physical Exam Const alert, oriented x3 and no apparent distress HEENT Head and Scalp: atraumatic Resp normal respiratory effort GI soft to palpation and non-tender Bimanual Exam - Vag & Uterus: uterus non-tender Uterus Palpation: uterus fundus firm (below Umbilicus) Assessment & Plan (1) Vaginal delivery: COMMENT: TA IAL 39 girl [place] PLAN: Plan s/p PPD # 1 1. routine post delivery care 2. breast feeding- support given 3. rh positive 4. rubella immune
[2024-12-10] MEDS: Naproxen 500 MG Tablet PO (13:55)
--- NOTE | 2024-12-14 14:46 | NURSING ---
Follow up phone call made, no answer, left voicemail
== END 2024-12-10 14:30 | disposition home or self-care (01) | DRG 560 ==
LOC: WPOUT 08:06 → WP 08:07
PROVIDERS: Admitting Provider Obstetrics & Gynecology; Referring Provider Obstetrics & Gynecology; Visit Provider Obstetrics & Gynecology
DX: O26.843 Uterine size-date discrepancy, third trimester (principal); Z37.0 Single live birth; Z3A.39 39 weeks gestation of pregnancy; Z79.82 Long term (current) use of aspirin; Z87.59 Personal history of other complications of pregnancy, childbirth and the puerperium
CPT/HCPCS: 59025; 59050; 76816; 85025; 86780; 86850; 86900; 86901; 99221; G0378